=== PATIENT | female | born 2005 | race Caucasian/White ===

== ENCOUNTER 2025-06-13 12:19 | Emergency (ER) | payer MEDICAID ==
[~2025-06-13] VITALS: Ht 162.6 cm; Wt 37.0 kg
[2025-06-13 13:23] LABS: MEAN PLATELET VOLUME 9.9 FL (7.4-10.4); RED CELL DISTRIBUTION WIDTH 16.1 % (11.5-14.5)
[2025-06-13] MEDS: ondansetron/PF 4mg/2ml inj IV ONE (13:28)
[2025-06-13] MEDS: normal saline 1000ml 1,000 ML IV ONE (13:28)
[2025-06-13 13:34] LABS: CREATININE 1.05 MG/DL (0.40-0.90); TOTAL CARBON DIOXIDE 20.8 MMOL/L (24-32); eCRCL 50 ML/MIN; eGFR 68 ML/MIN
--- NOTE | 2025-06-13 15:15 | Physician Documentation ---
History of Present Illness Chief Complaint: Abdominal Pain w/vomiting Stated Complaint: VOMITING Time Seen by MD: 15:01 [facility] This is a 19-year-old female that presents to the emergency department for evaluation of abdominal pain and nausea vomiting x3 days. Patient reports that she is unable to hold water or food down due to vomiting. Denies fever or chills. Denies any significant past medical history. Medication Reconciliation Allergies: Coded Allergies: No Known Allergies (Unverified , 06/13/25) Review of Systems ROS As stated above in the HPI, otherwise all systems are reviewed and negative. Physical Exam Vital Signs: Temperature: 97.2, Source: Oral, Heart Rate: 70, Respiratory Rate: 18, BP: 150/90, Pulse Oximetry: 100, Weight: 37.000 Oxygen Flow Rate: 0 Physical Exam VITALS: Reviewed and as above. GENERAL: Alert, no apparent distress. HEENT: Normocephalic, atraumatic, PERRL, EOMI, dry mucosa, no erythema RESPIRATORY: Lungs clear, normal breath sounds, no respiratory distress. CHEST: No accessory muscle use, no retractions CV: Regular rate, rhythm, no edema, no murmur, No: JVD GI: Soft, tender with palpation, bowels sounds present, no rebound, guarding, or rigidity BACK: No CVA tenderness, or swelling MUSCULOSKELETAL No deformities, no edema SKIN: Warm and dry, no rash NEURO: Oriented x4, No motor or sensory deficit PSYCH: Normal mood and affect, no agitation Progress Results/Orders Results/Orders Medications Received in ER Medications (Trade) Dose Ordered Sig/Amara Route PRN Reason Start Time Stop Time Status Last Admin Dose Admin Sodium Chloride 1,000 ml @ 1,000 mls/hr ONCE ONCE IV 06/13/25 13:20 06/13/25 14:19 DC 06/13/25 13:28 1,000 MLS/HR (Zofran 4mg/2ml vial) 4 mg ONCE ONCE IV 06/13/25 13:20 06/13/25 13:21 DC 06/13/25 13:28 4 MG Vital Signs 06/13/25 06/13/25 12:29 13:32 Temp 97.2 Pulse 70 Resp 18 B/P (MAP) 150/90 Pulse Ox 100 O2 Flow Rate 0 Laboratory Tests Test 06/13/25 12:59 White Blood Count 11.3 H Red Blood Count 4.57 Hemoglobin 12.9 Hematocrit 38.2 Mean Corpuscular Volume 83.6 Mean Corpuscular Hemoglobin 28.2 Mean Corpuscular Hemoglobin Concent 33.7 Red Cell Distribution Width 16.1 H Platelet Count 311 Mean Platelet Volume 9.9 Neutrophils (%) (Auto) 87.2 H Lymphocytes (%) (Auto) 8.7 L Monocytes (%) (Auto) 3.6 Eosinophils (%) (Auto) 0.2 Basophils (%) (Auto) 0.3 Neutrophils # (Auto) 9.9 H Lymphocytes # (Auto) 1.0 L Monocytes # (Auto) 0.4 Eosinophils # (Auto) 0.0 Basophils # (Auto) 0.0 CBC Comment Sodium Level 136 Potassium Level 3.7 Chloride Level 101 Carbon Dioxide Level 20.8 L Anion Gap 14 Blood Urea Nitrogen 13 Creatinine 1.05 H Estimated GFR/1.73 m2 68 BUN/Creatinine Ratio 12.4 Glucose Level 129 H Calcium Level 8.9 Total Bilirubin 0.4 Aspartate Amino Transf (AST/SGOT) 51 H Alanine Aminotransferase (ALT/SGPT) 94 H Alkaline Phosphatase 49 Total Protein 8.0 Albumin 3.7 Globulin 4.3 Albumin/Globulin Ratio 0.9 L Lipase 24 Chemistry Comments Medical Decision Making Findings This patient presents with nausea, vomiting & diarrhea. Differential diagnosis includes possible acute gastroenteritis. Abdominal exam without peritoneal signs. Currently presents with signs of mild of dehydration. Doubt invasive bacteria causing diarrhea such as C diff (no recent antibiotics), shiga toxin (non bloody). No recent travel. Patient is not immunocompromised. Diarrhea is non bloody so less likely inflammatory bowel disease. No evidence of surgical abdomen or other acute medical emergency including bowel obstruction, viscus perforation, vascular catastrophe, atypical appendicitis, acute cholecystitis, UGIB, thyrotoxicosis, or diverticulitis at this time. Presentation not consistent with other acute, emergent causes of vomiting / diarrhea at this time. No indication for abdominal imaging. Patient rehydrated with a L of fluid, given Zofran, passed p.o. test. Patient reports that she is feeling better at this time. We will sent home with prescription for Zofran. Patient will follow up with her primary care provider. Will provide strict return precautions. Differential Dx:Considerations: Include: AAA, -Complete, - Incomplete, -Inevitable, -Missed, -Threatened, Abruptio placentae, Angina/SC, Aortic dissection, Appendicitis, Bowel obstruction, Cholangitis, Cholelithasis, Constipation, Diverticular disease, Esophageal rupture, Esophagitis, Gastritis/PUD, Gastroenteritis, GI hemorrhage, Hernia, Hepatitis, Inflammatory BD, Ischemic bowel, Ovarian cyst/torsion, Pancreatitis, PID, Porphyria, Trauma, intraabdominal, Urinary obstruction, Urinary tract infection, Urolithiasis, Other Departure Disposition: 01 HOME / SELF CARE / HOMELESS Impression: Primary Impression: Vomiting Additional Impressions: Acute gastroenteritis Abdominal pain Condition: Stable Discharge Instructions: Dehydration, Adult, Viral Gastroenteritis, Adult Additional Instructions: This patient presents with nausea, vomiting & diarrhea. Differential diagnosis includes possible acute gastroenteritis. Abdominal exam without peritoneal signs. Currently presents with signs of mild of dehydration. Doubt invasive bacteria causing diarrhea such as C diff (no recent antibiotics), shiga toxin (non bloody). No recent travel. Patient is not immunocompromised. Diarrhea is non bloody so less likely inflammatory bowel disease. No evidence of surgical abdomen or other acute medical emergency including bowel obstruction, viscus perforation, vascular catastrophe, atypical appendicitis, acute cholecystitis, UGIB, thyrotoxicosis, or diverticulitis at this time. Presentation not consistent with other acute, emergent causes of vomiting / diarrhea at this time. No indication for abdominal imaging. Patient rehydrated with a L of fluid, given Zofran, passed p.o. test. Patient reports that she is feeling b diego at this time. We will sent home with prescription for Zofran. Take medications as prescribed. Please follow up with the primary care provider. Return to the emergency department if you have any worsening or recurrent symptoms i.e. fever chills increased nausea vomiting unable to hold down liquids decreased urine lightheaded dizziness or any other concerning symptoms. Referrals: NO PRIMARY CARE PROVIDER (PCP) Prescriptions ONDANSETRON ODT 4mg tablet (ONDANSETRON ODT) 4 Mg Tab.rapdis 4 MG PO Q6H for 5 Days, #20 TAB Prov: AL MOORE 06/13/25 Education Educated: Patient Educated regarding: diagnosis, treatment, need for follow up Signature Scribe Signature: A Attestation: Scribed for Al Moore by PÉREZ Curtis . 06/13/25 15:22 AL MOORE [facility] Jun 13, 2025 15:15
[2025-06-13] MEDS ORDERED: ONDA-243 PO (15:21)
[2025-06-13 15:23] LABS: LEUKOCYTE ESTERASE ,URINE NEGATIVE (Neg); NITRITES, URINE NEGATIVE (Neg); OCCULT BLOOD,URINE LARGE (Neg)
[2025-06-13 15:24] LABS: UA COLLECTION TYPE CLN CATCH MIDSTREAM
[2025-06-13 15:27] LABS: URINE HCG NEGATIVE (NEG)
[2025-06-13 15:30] VITALS: BP 140/80; PULSE 68; RESP 18; TEMP 98; O2SAT 100
[2025-06-13 15:36] LABS: MUCUS STRANDS MANY /LPF (Neg); SQUAMOUS EPITHELIAL CELL,UR MANY /LPF (FEW)
[2025-06-15] MEDS ORDERED: SULF1TAB49 PO (19:06)
[2025-06-15] MEDS ORDERED: ACET-1025 PO (19:08)
[2025-06-15] MEDS ORDERED: IBUP-1986 PO (19:08)
== END 2025-06-13 15:32 | disposition home or self-care (01) ==
LOC: ER 12:20
DX: K52.9 Noninfective gastroenteritis and colitis, unspecified (principal)
CPT/HCPCS: 36415; 80053; 81001; 81025; 83690; 85025; 96361; 96374; 99283; J2405; J7030

== ENCOUNTER 2025-06-16 07:31 | Inpatient (IN) | payer MEDICAID ==
[~2025-06-16] VITALS: Ht 157.5 cm; Wt 47.0 kg
[~2025-06-16 07:31] MED LIST: ACET-1025 PO; IBUP-1986 PO; ONDA-243 PO; SULF1TAB49 PO
[2025-06-16 08:59] LABS: LEUKOCYTE ESTERASE ,URINE NEGATIVE (Neg); NITRITES, URINE NEGATIVE (Neg); OCCULT BLOOD,URINE MODERATE (Neg)
--- NOTE | 2025-06-16 09:05 | Physician Documentation ---
History of Present Illness ~ Chief Complaint: Facial Swelling Stated Complaint: FACIAL SWELLING,ABSCESS Time Seen by MD: 08:58 Primary Medical Doctor: pramod Source: patient Mode of Arrival: POV Exam Limitations: no limitations HPI Chief Complaint: Facial swelling and pain Caveat: None Independent Historians: None History of Present Illness: Patient is a 19-year-old woman who was seen here yesterday for right facial swelling and diagnosed with facial cellulitis. She was discharged on Bactrim. Patient comes in today because the swelling and redness is worse. Patient's pain is 8/10 and worse with touch. No known fever. Patient is and has a 7-month-old baby. Patient denies any other associated symptoms. Review of systems: All systems were reviewed and are negative except for what is indicated in the history of present illness. Past Medical History: None Past Surgical History: None Social History: No tobacco use, no alcohol use, no drug use Medications: Reviewed as documented Nursing Notes Allergies: Reviewed as documented in Nursing Notes Medication Reconciliation Allergies: Coded Allergies: No Known Allergies (Unverified , 06/16/25) Scheduled [ control patch], TOP weekly, (Reported) Discontinued Medications Acetaminophen (Tylenol Extra Strength), 2 TAB PO Q6H PRN PRN for pain or fever Discontinued Reason: Other Ibuprofen (Ibuprofen), 1 TAB PO Q8H Discontinued Reason: patient no longer taking ONDANSETRON ODT 4mg tablet (Ondansetron Odt), 4 MG PO Q6H Discontinued Reason: Other Sulfamethoxazole/Trimethoprim (Bactrim Ds Tablet), 1 TAB PO Q12H Discontinued Reason: patient no longer taking Past Medical History Last Menstrual Period: Jun 16, 2025 Review of Systems All Other Systems at this time: Reviewed and Negative ROS Patient denies any other acute symptoms other than above. All other systems are negative Physical Exam Vital Signs: RN Vital Signs have been reviewed: Yes, Temperature: 99.2, Source: Oral, Heart Rate: 98, Respiratory Rate: 18, BP: 112/73, Pulse Oximetry: 98, Weight: 47.000 Oxygen Flow Rate: 0 Pulse Oximetry Reflects: adequate oxygenation Physical Exam General Appearance: No distress HEENT: Normal OP, moist oral mucosa, PERRL, EOMI, periorbital edema and swelling, quarter-size area over the right maxilla that is indurated with some surrounding erythema around the right cheek. No fluctuance. Patient does not have any significant dental decay on physical exam. Neck: supple, normal ROM, trachea midline Pulmonary: No respiratory distress, CTA, BS equal Cardiac: RRR, no murmur, rub or gallop, GI: nondistended, soft, nontender, normal bowel sounds, no guarding, no rebound Extremities: normal ROM, no swelling, non-tender Skin: intact, dry, warm, no rashes, see HEENT above Neuro: AAOx3, speech is clear, no focal motor weakness Psych: normal affect, good eye contact, no apparent hallucination, normal speech Progress Results/Orders Results/Orders Orders - SRAVANTHI DONALD MD Culture Blood (06/16/25 08:59) Ct Facial Bones/Soft Tissue (06/16/25 10:05) Page Hospitalist (06/16/25 11:16) Fill Out Med Reconciliation (06/16/25 11:16) Completed Orders - SRAVANTHI DONALD MD Hcg, Ur Ql (06/16/25 07:42) Cbc/Diff (06/16/25 08:59) CMP (06/16/25 08:59) Lacticsepsis (06/16/25 08:59) Ceftriaxone/[id number] 1gm (Rocephin 1 (06/16/25 09:00) Vancomycin*Pharmacy To Dose* (Vancomycin (06/16/25 09:00) Ct Facial Bones/Soft Tissue (06/16/25 10:05) Ua W/Microscopic, Cult If Ind (06/16/25 07:45) Vancomycin/Ns 1 Gm Add-Herrin (Vancomyc (06/16/25 09:20) Vital Signs 06/16/25 06/16/25 06/16/25 07:33 09:10 11:23 Temp 99.2 98.2 Pulse 98 78 75 Resp 18 14 15 B/P (MAP) 112/73 119/68 (85) 124/71 (88) Pulse Ox 98 99 99 O2 Flow Rate 0 0 0 Laboratory Tests Test 06/16/25 07:45 06/16/25 09:20 06/16/25 09:21 Urine Specimen Description Cln catch midstream Urine Color Yellow Urine Clarity Slightly cloudy Urine pH 6.5 Urine Specific [place] 1.020 Urine Protein Negative Urine Glucose (UA) Negative Urine Ketones 15 H Urine Occult Blood Moderate H Urine Nitrite Negative Urine Bilirubin Small Urine Urobilinogen 0.2 Urine Leukocyte Esterase Negative Urine RBC 3-10 Urine WBC 0-4 Urine Squamous Epithelial Cells Moderate Urine Bacteria Few Urine Culture Indicated Not ind Volume Urine Centrifuged 10 ml Urine HCG, Qualitative Negative Urine Comment Lactic Acid Level 0.8 White Blood Count 11.7 H Red Blood Count 4.07 L Hemoglobin 11.3 L Hematocrit 33.7 L Mean Corpuscular Volume 82.8 Mean Corpuscular Hemoglobin 27.8 Mean Corpuscular Hemoglobin Concent 33.6 Red Cell Distribution Width 15.9 H Platelet Count 208 Mean Platelet Volume 9.4 Neutrophils (%) (Auto) 78.6 H Lymphocytes (%) (Auto) 10.2 L Monocytes (%) (Auto) 9.7 Eosinophils (%) (Auto) 1.3 Basophils (%) (Auto) 0.2 Neutrophils # (Auto) 9.2 H Lymphocytes # (Auto) 1.2 Monocytes # (Auto) 1.1 H Eosinophils # (Auto) 0.2 Basophils # (Auto) 0.0 CBC Comment Sodium Level 136 Potassium Level 3.2 L Chloride Level 104 Carbon Dioxide Level 20.3 L Anion Gap 12 Blood Urea Nitrogen 3 L Creatinine 0.99 H Estimated GFR/1.73 m2 72 BUN/Creatinine Ratio 3.0 L Glucose Level 89 Calcium Level 8.3 L Total Bilirubin 0.4 Aspartate Amino Transf (AST/SGOT) 16 Alanine Aminotransferase (ALT/SGPT) 53 Alkaline Phosphatase 44 Total Protein 6.8 Albumin 3.0 L Globulin 3.8 Albumin/Globulin Ratio 0.8 L Procalcitonin < 0.05 Chemistry Comments Microbiology Date/Time Source Procedure Growth Status 06/16/25 09:21 Blood Arm Right Blood Culture - Preliminary NEGATIVE (LESS THAN 24 HOURS) Resulted Medical Decision Making Findings Differential diagnosis includes but is not limited to: Facial abscess, facial phlegmon, periorbital cellulitis, orbital cellulitis, facial cellulitis CT face, with IV contrast, indication: Infection Impression: Diffuse dental disease most prominent associated with posterior bilateral maxillary teeth. Recommend correlation with dental exam. Moderate mucosal opacification of the right maxillary sinus. [id number] diffuse right facial soft-tissue swelling. No discrete fluid collection or abscess. Laboratory data independent interpretation: CBC: Leukocytosis 11.7, moderate anemia hemoglobin 11.3 CMP: Mild hypokalemia potassium 3.2 otherwise unremarkable Urinalysis: Contaminated specimen Urine test: Negative Emergency department course/medical decision-making: Patient presents with worsening right-sided facial cellulitis. Patient refused admission yesterday. Patient absolutely requires admission for IV antibiotics. There was no evidence of an abscess to drain. Patient is started on IV Rocephin and IV vanco. Test results and treatment plan and need for admission was all discussed with the patient. Bedside ultrasound was performed to evaluate the indurated swollen area over the right cheek. There is no fluid collection large enough to aspirate or drain. Patient does have what likely appears to be a phlegmon with microscopic areas fluid that could be pus. Consultation/communications: 11:34 a.m.: Case discussed with our hospitalist Dr. Ceron. She will evaluate the patient for admission. Departure Time of Disposition: 11:14 Disposition: 09 ADMITTED INPATIENT Admitted to Inpatient Unit: to hospitalist Admission Level of Care: Med/Surg Impression: Primary Impression: Facial cellulitis Education Educated: Patient Educated regarding: diagnosis, treatment Signature Scribe Signature: No scribe Attestation: No scribe SRAVANTHI DONALD MD Jun 16, 2025 09:05
[2025-06-16 09:12] LABS: URINE HCG NEGATIVE (NEG)
[2025-06-16 09:17] LABS: UA COLLECTION TYPE CLN CATCH MIDSTREAM
[2025-06-16 09:22] LABS: SQUAMOUS EPITHELIAL CELL,UR MODERATE /LPF (FEW)
[2025-06-16] MEDS: CefTRIAXone/D5W-Rocephin 1gm 50 ML IV ONE (09:25)
[2025-06-16] MEDS ORDERED: iohexol 300mg/ml 100ml inj. ONE (09:28)
[2025-06-16 09:30] LABS: MEAN PLATELET VOLUME 9.4 FL (7.4-10.4); RED CELL DISTRIBUTION WIDTH 15.9 % (11.5-14.5)
[2025-06-16 09:42] LABS: CREATININE 0.99 MG/DL (0.40-0.90); TOTAL CARBON DIOXIDE 20.3 MMOL/L (24-32); eCRCL 68 ML/MIN; eGFR 72 ML/MIN
[2025-06-16] MEDS: sulfamethoxazole/trimethoprim DS (800/160mg) tablet PO STA (10:08)
[2025-06-16] MEDS: vancomycin/NS 1 GM ADD-VANTAGE 250 ML X 1 DOSE IV ONE (10:09)
--- NOTE | 2025-06-16 10:30 | RADIOLOGY REPORT ---
HISTORY: right facial infection involving periorbital tissue TECHNIQUE: Postcontrast axial images through the facial bones with coronal and sagittal MPR. Radiation Dose Information: CT Dose: CTDI volume is 50 mGy. Dose-length product is 943 mGy*cm COMPARISON: CT CT FACIAL BONES/SOFT TISSUE W/ IV CONTRAST on DOS: 06/15/25 FINDINGS: Mandible: Dental disease associated with posterior bilateral maxillary teeth. Maxilla: Unremarkable Zygomatic arches: Unremarkable Nasal bone: Unremarkable Orbits: Unremarkable Sinuses: Moderate mucosal opacification of the right maxillary sinus. Facial swelling: [id number] diffuse right facial soft-tissue swelling. IMPRESSION: Diffuse dental disease most prominent associated with posterior bilateral maxillary teeth. Recommend correlation with dental exam. Moderate mucosal opacification of the right maxillary sinus. [id number] diffuse right facial soft-tissue swelling. No discrete fluid collection or abscess.
[2025-06-16] MEDS ORDERED: magnesium sulf-water 4G/100mL 100 ML IV PRN (11:45)
[2025-06-16] MEDS ORDERED: HYDROcodone/acetaminophen 10/325mg tab PO PRN (11:45)
[2025-06-16] MEDS ORDERED: magnesium hydroxide 30ml (MOM) UD suspension PO PRN (11:45)
[2025-06-16] MEDS ORDERED: potassium Cl 40MEQ/1/2NS 520ml 520 ML IV PRN (11:45)
[2025-06-16] MEDS ORDERED: magnesium sulf-water 2g/50mL 50 ML IV PRN (11:45)
[2025-06-16] MEDS ORDERED: ondansetron/PF 4mg/2ml inj IV PRN (11:45)
[2025-06-16] MEDS ORDERED: potassium Cl 20 mEq SR tablet PO PRN ×2 (11:45)
[2025-06-16] MEDS ORDERED: magnesium Cl slow-release 64mg tablet PO PRN (11:45)
[2025-06-16] MEDS ORDERED: HYDROcodone/acetaminophen 5mg/325mg tablet PO PRN (11:45)
[2025-06-16] MEDS ORDERED: normal saline 1000ml 1,000 ML IV SCH (11:45)
[2025-06-16] MEDS ORDERED: birth control patch TOP (12:49)
[2025-06-16 13:17] VITALS: BP 124/83; PULSE 82; RESP 16; TEMP 97.1; O2SAT 99
[2025-06-16] MEDS ORDERED: AMOX-580 PO (13:46)
--- NOTE | 2025-06-16 19:10 | DISCHARGE SUMMARY ---
Discharge Summary Providers to CC ~ Discharge Summary Admission Diagnosis: right facial swelling , possible dental caries/acute maxillary sinusitis Hospital Course DATE OF ADMISSION: June 16, 2025 DATE OF DISCHARGE:June 16, 2025 PATIENT LEFT AGAINST MEDICAL ADVICE SHE DOES NOT WANT TO LEAVE HER LITTLE DAUGHTER WHO IS 7-MONTH-OLD AND SHE DOES NOT HAVE ANYBODY TO TAKE CARE OF HER. Discharge Diagnosis\Comment: Right-sided facial swelling , Diffuse dental disease most prominent associated with posterior bilateral maxillary teeth. .Moderate mucosal opacification of the right maxillary sinus , possible acute maxillary sinusitis. Operations\Procedures: None Consultants: None Complications: None Condition on DC: Stable New Medications: Amox Tr/Potassium Clavulanate 875/125 MG (Augmentin 875/125 MG) 875 Mg-125 Mg Tablet 1 TAB PO BID for 7 Days, #14 TAB Discharge Summary: Patient is a 19-year-old woman who was seen here yesterday for right facial swelling and diagnosed with facial cellulitis. She was discharged on Bactrim. Patient comes in today because the swelling and redness is worse. Patient's pain is 8/10 and worse with touch. No known fever. Patient is and has a 7-month-old baby. Patient denies any other associated symptoms. Patient was admitted to surgical floor for Right-sided facial swelling , Diffuse dental disease most prominent associated with posterior bilateral maxillary teeth. .Moderate mucosal opacification of the right maxillary sinus , possible acute maxillary sinusitis. Arrived on the floor with her 7-month-old little baby. Her in a shelter case manager and nursing staff spoke to her that they can not allow baby to be on floors with her then she decided to leave against medical advice. Patient is seen and examined on the day of discharge. All questions and queries answered to the best of my professional medical knowledge. I heard patient's concerns and address appropriately. Discharge instructions provided to the patient. Diffuse dental disease most prominent associated with posterior bilateral maxillary teeth. Recommend correlation with dental exam.Moderate mucosal opacification of the right maxillary sinus , possible acute maxillary sinusitis. Repeat CBC sed rate procalcitonin in 3-5 days in outpatient setting. General-patient not in any acute distress, alert awake oriented, ill-appearing, age-appropriate HEENT-atraumatic normocephalic, neck supple without elevated JVD, no thyromegaly or carotid bruit. No lymphadenopathy bilaterally. Signs of right facial swe lling present as per patient she has pain over right molar area also which she pointed out with her tongue. No signs of tenderness present over sinuses bilaterally mild enlarged lymph followed in submandibular area. Eyes-no icterus or pallor seen in eyes. Normal eye movements normal vision. Chest-clear to auscultation bilaterally, breathing nonlabored no tachypnea, no wheezing, no crepitation, no crackles. Heart-S1-S2 normal, regular heart rate no murmur Abdomen bowel sounds positive on auscultation, soft nondistended nontender no guarding, no rigidity Skin -signs of erythema and induration present over right upper face. No pus discharge noticed over erythematous lesion Neurology-grossly intact, nonfocal alert awake oriented ambulating well Extremity- no pedal edema able to move all 4 extremities Psychiatry - patient is not confused or agitated cooperated during physical examination *Problems/Diagnosis: (1) Facial cellulitis Status: Acute Total Time Spent on D/C: Up to 30 Minutes Date of Service: Jun 16, 2025 Billing Provider: RUBNÉ AGUIRRE MD Common Visit Codes: 26905-DIZ/OBS DISCH DAY <30MIN RUBÉN AGUIRRE MD Jun 16, 2025 19:08
--- NOTE | 2025-06-16 19:16 | HISTORY AND PHYSICAL ---
History & Physical Providers to ~ History of Present Illness Reason for Admit\Complaint: Facial swelling and pain History of Present Illness Patient is a 19-year-old woman who was seen here yesterday for right facial swelling and diagnosed with facial cellulitis. She was discharged on Bactrim. Patient comes in today because the swelling and redness is worse. Patient's pain is 8/10 and worse with touch. No known fever. Patient is and has a 7-month-old baby. Patient denies any other associated symptoms. Allergies: Coded Allergies: No Known Allergies (Unverified , 06/16/25) Home Medications Home Medications Active Reported [ control patch] TOP WEEKLY Past Medical History Past Medical History History of spina bifida Past Surgical History Surgical History Comment No pertinent surgical history Family History Family History: Patient reports no known family medical history. Past Social History Social History Comment No tobacco use, no alcohol use, no drug use. Patient has 7-month-old baby who is on formula feeding. Patient is able to ambulate without using any assistive device. Mentioned to contact her grandparents for any abnormal results ROS ROS Review of system as mentioned above in HPI rest of the review of system unremarkable Exam Vitals: Vital Signs Date Time Temp Pulse Resp B/P (MAP) Pulse Ox O2 Delivery O2 Flow Rate FiO2 06/16/25 13:17 97.1 82 16 124/83 (97) 99 Room Air 06/16/25 11:23 0 General: General-patient not in any acute distress, alert awake oriented, ill-appearing, age-appropriate HEENT-atraumatic normocephalic, neck supple without elevated JVD, no thyromegaly or carotid bruit. No lymphadenopathy bilaterally. Signs of right facial swelling present as per patient she has pain over right molar area also which she pointed out with her tongue. No signs of tenderness present over sinuses bilaterally mild enlarged lymph followed in submandibular area. Eyes-no icterus or pallor seen in eyes. Normal eye movements normal vision. Chest-clear to auscultation bilaterally, breathing nonlabored no tachypnea, no wheezing, no crepitation, no crackles. Heart-S1-S2 normal, regular heart rate no murmur Abdomen bowel sounds positive on auscultation, soft nondistended nontender no guarding, no rigidity Skin -signs of erythema and induration present over right upper face. No pus discharge noticed over erythematous lesion Neurology-grossly intact, nonfocal alert awake oriented ambulating well Extremity- no pedal edema able to move all 4 extremities Psychiatry - patient is not confused or agitated cooperated during physical examination Diagnostic Data Last Recorded Lab Results: 06/16/[id number] Problems: (1) Facial cellulitis Status: Acute Additional Plan Patient was admitted to surgical floor for Right-sided facial swelling , Diffuse dental disease most prominent associated with posterior bilateral maxillary teeth. .Moderate mucosal opacification of the right maxillary sinus , possible acute maxillary sinusitis. Patient received Bactrim DS, vancomycin, ceftriaxone from ER. Pain medication ordered for pain control. We will continue to monitor patient's vitals and labs and order ceftriaxone and vancomycin. Further sepsis workup ordered. Current condition is guarded further management depending on response to treatment. We will continue to follow patient in AM Date of Service: Jun 16, 2025 Billing Provider: RUBÉN AGUIRRE MD Common Visit Codes: [id number] INP/OBS CARE (HIGH) RUBÉN AGUIRRE MD Jun 16, 2025 19:16
[2025-06-16] MEDS ORDERED: POTA-207 PO (19:18)
[2025-06-16] MEDS ORDERED: heparin, porcine 5000 units/ml vial SQ SCH (20:00)
[2025-06-16] MEDS ORDERED: docusate sod 100mg capsule PO SCH (20:00)
== END 2025-06-16 14:15 | disposition left against medical advice (07) | DRG 383 ==
LOC: EEVIPCON 07:32 → ER 07:32 → ED HOLD 13:05 → SUR 3N 13:54
PROVIDERS: ADMIT Internal Medicine; ATTEND Internal Medicine
PROC: BN251ZZ Computerized Tomography (CT Scan) of Facial Bones using Low Osmolar Contrast (ICD-10-PCS; principal; 2025-06-16)
PROC: BN231ZZ Computerized Tomography (CT Scan) of Bilateral Orbits using Low Osmolar Contrast (ICD-10-PCS; 2025-06-16)
PROC: BN261ZZ Computerized Tomography (CT Scan) of Mandible using Low Osmolar Contrast (ICD-10-PCS; 2025-06-16)
DX: L03.211 Cellulitis of face (principal); J01.00 Acute maxillary sinusitis, unspecified; K08.89 Other specified disorders of teeth and supporting structures; Z53.29 Procedure and treatment not carried out because of patient's decision for other reasons; Z79.899 Other long term (current) drug therapy
CPT/HCPCS: 36415; 70487; 80053; 81001; 81025; 83605; 84145; 85025; 85651; 87040; 96365; 96367; 99285; G0378; J0696; J3373; J7050; Q9967